=== PATIENT | female | born 1970 | race Caucasian/White ===

== ENCOUNTER 2016-10-24 23:39 | Emergency (ER) | payer OTHER ==
--- NOTE | ~2016-10-24 | CT4 ---
[facility] A Service of [facility] & [facility] / [facility] RADIOLOGY TEXT RESULTS PATIENT: DAVID CHRISTENSEN LOCATION: SED : 70 UNIT #: [id number] AGE: [address]: Ken Drake MD SEX: F ORDER DR: [id number] [place] [id number] E MR#: [id number] Acc #: [id number] NAME: DAVID CHRISTENSEN : 1970 SEX: F STUDY DATE/TIME: 10/25/2016 00:28 UNIT: SED ROOM: STUDY DESCRIPTION: CT Abd and Pelv Wo Cont Attending Physician: Ken Drake M.D. Ordering Physician: Ken Drake M.D. Primary Care Physician: Primary Care Physician No MEDICAL IMAGING REPORT This report is preliminary unless electronic signature is present. EXAM CT abdomen and pelvis, 10/25 at 0028 hours INDICATIONS Left lower quadrant pain since last night with associated nausea, vomiting and diarrhea. Pain is currently 10/10. TECHNIQUE Axial images were obtained through the abdomen and pelvis without contrast. Multiplanar reformats were obtained. Comparison made with 01/27/2013. This CT exam was performed with one or more of the following radiation dose reduction techniques: Automatic exposure control, adjustment of mA and/or kV according to patient size, and iterative reconstruction. FINDINGS ABDOMEN: The lung bases are clear. Gallbladder is unremarkable. There are bilateral nonobstructing renal stones. The largest is in the left kidney measuring about 10 mm in greatest dimension. This is not significantly changed. No ureteral stones are seen on either side and there is no hydronephrosis. The unenhanced solid organs are otherwise normal. No free fluid is seen. The small bowel is normal. There are a few scattered colonic diverticula. There is mild degree of generalized colonic wall thickening suggesting mild colitis. PELVIS: There are no lower ureteral stones. The bladder is normal. The solid pelvic organs are normal. There is sigmoid diverticulosis, without evidence of focal diverticulitis. The appendix is normal. There is some mild degenerative disease in the lumbar spine, particularly involving the right L5-S1 facet. IMPRESSION [facility] A Service of [facility] & [facility] / [facility] RADIOLOGY TEXT RESULTS PATIENT: DAVID CHRISTENSEN LOCATION: [facility] : [birth year] UNIT #: [id number] AGE: [address]: Ken Drake MD SEX: F ORDER DR: 1. Bilateral nonobstructing renal stones. No ureteral stones are seen and there is no hydronephrosis. 2. Mild wall thickening in the colon suggesting a very mild degree of generalized colitis. No adjacent inflammatory fat stranding. Scattered colonic diverticula are present, but there is no focal diverticulitis identified. 3. Normal small bowel and appendix. Dictated by... Cas Barfield Jr., M.D. THIS IS AN ELECTRONICALLY VERIFIED REPORT Cas Barfield Jr., M.D. at 10/25/2016 9:31 PM JOJO/moni TD: 10/25/2016 15:58 JOB #: [id number] MEDICAL IMAGING REPORT
[~2016-10-24 23:39] MED LIST: BENTYL10 MG PO; CIPRO PO; CLARITHROMYCIN500 MG PO; FLAGYL PO; FLEXERIL PO; FLEXERIL10 M1 PO; K-DUR20 ME1 PO; LEVAQUIN750 MG PO; MOBIC PO; NO MEDICATIONS; PHENERGAN PO; PHENERGAN25 M1 PO; PHENERGAN25 MG PO; PRILOSEC20 M1 PO; VOLTAREN PO; ZOFRAN ODT4 MG PO
[2016-10-24 23:42] LABS: BASOPHIL# 0.1 X10e3 (0-0.3); BASOPHIL% 0.6 % (0-2.5); DIFF IND NO; EOSINOPHIL# 0.1 X10e3 (0-0.7); EOSINOPHIL% 0.4 % (0.0-7.0); HEMATOCRIT 46.5 % (35.0-45.0); HEMOGLOBIN 15.4 gm/dL (12.0-16.0); LYMPHOCYTE# 2.2 X10e3 (1.0-3.5); LYMPHOCYTE% 14.8 % (17.0-45.0); MEAN CELL VOLUME 91.7 FL (83-96); MEAN CORPUSCULAR HEMOGLOBIN 30.4 PG (28-34); MEAN CORPUSCULAR HGB CONC 33.2 g/dL (30-36); MEAN PLATELET VOLUME 7.6 FL (6.5-11.5); MONOCYTE# 1.1 X10e3 (0-1.0); MONOCYTE% 7.4 % (3.0-12.0); NEUTROPHIL# 11.3 X10e3 (1.5-7.1); NEUTROPHIL% 76.8 % (40-75); PLATELET COUNT 348 X10e3 (140-420); RED BLOOD COUNT 5.07 X10e (3.90-5.30); RED CELL DISTRIBUTION WIDTH 14.1 % (11.0-15.5); WHITE BLOOD COUNT 14.7 X10e3 (4.0-10.5)
[2016-10-25] LABS: ALBUMIN SERUM 4.8 g/dL (3.5-5.0); ALKALINE PHOSPHATASE 100 U/L (32-92); ALT (SGPT) 28 U/L (10-40); AMYLASE 24 U/L (0-46); AST (SGOT) 28 U/L (10-42); BILIRUBIN,TOTAL 0.4 mg/dL (0.2-2.0); BLOOD UREA NITROGEN 12 mg/dL (9-23); CALCIUM SERUM 9.3 mg/dL (8.4-10.2); CARBON DIOXIDE 27 mmol/L (22-31); CHLORIDE 101 mmol/L (100-111); CREATININE SERUM 0.6 mg/dL (0.6-1.4); GLOM FILT RATE Estimated ABOVE60 mL/min (>60); GLUCOSE FASTING 148 mg/dL (70-110); LIPASE 29 U/L (22-51); POTASSIUM 3.2 mmol/L (3.5-5.1); SODIUM 138 mmol/L (135-145)
[2016-10-25 00:48] LABS: URINE SOURCE CLEAN CATCH
[2016-10-25 00:50] LABS: URINE APPEARANCE SL CLOUDY; URINE BLOOD 3+ (NEG); URINE COLOR YELLOW; URINE GLUCOSE NEG (NORM); URINE KETONE TRACE (NEG); URINE LEUKOCYTE ESTERASE NEG (NEG); URINE NITRATE NEG (NEG); URINE PH 5.5 (5-8); URINE PROTEIN 1+ (NEG); URINE SPECIFIC GRAVITY >=1.030 (1.003-1.035); URINE UROBILINOGEN 0.2 MG/DL (NORM)
[2016-10-25 00:56] LABS: MICRO INDICATED? YES; URINE BILIRUBIN NEG (NEG)
[2016-10-25 00:57] LABS: CULTURE INDICATED? NO; URINE AMORPHOUS SEDIMENT AMORP URATES; URINE BACTERIA NEG (NEG); URINE CRYSTALS CALCIUM OXALATE /[HPF]; URINE MUCUS PRESENT; URINE SQUAMOUS EPITHELIAL CELL OCCAS /[HPF]
[2016-10-25] MEDS ORDERED: K-DUR20 ME1 DOB (01:36)
[2016-10-25] MEDS ORDERED: FLAGYL PO (01:37)
[2016-10-25] MEDS ORDERED: ZOFRAN ODT4 MG PO (01:38)
[2016-10-25] MEDS ORDERED: BACTRIM DS TABL1 TA2 PO (01:38)
[2016-10-25] MEDS ORDERED: HYDROCODONE/APA1 T16 PO (01:40)
== END 2016-10-25 02:00 | disposition home or self-care (01) ==
LOC: SED 23:39
PROVIDERS: Emergency Medicine
DX: K57.32 Diverticulitis of large intestine without perforation or abscess without bleeding (principal); F17.210 Nicotine dependence, cigarettes, uncomplicated
CPT/HCPCS: 36415; 74176; 80053; 81003; 82150; 83690; 84703; 85025; 96374; 96375; 96376; 99284; J1170; J2405; J2765

== ENCOUNTER 2016-12-15 08:51 | Emergency (ER) | payer OTHER ==
--- NOTE | ~2016-12-15 | CR2 ---
[facility] A Service of [facility] & [facility] RADIOLOGY TEXT RESULTS PATIENT: DAVID CHRISTENSEN LOCATION: [facility] : [birth year] UNIT #: [id number] AGE: [address]: Shalini Salmeron APRN SEX: F ORDER DR: [id number] [facility] [address] [place], [place] [address] [id number] E MR#: [id number] Acc #: [id number] NAME: DAVID CHRISTENSEN : 1970 SEX: F STUDY DATE/TIME: 12/15/2016 9:20 UNIT: [facility] ROOM: STUDY DESCRIPTION: CR Abdomen Acute Series Attending Physician: Shalini Salmeron A.P.R.N. Ordering Physician: Ed Doctor [id number] [facility] Primary Care Physician: Primary Care Physician No MEDICAL IMAGING REPORT This report is preliminary unless electronic signature is present EXAM Acute abdominal series INDICATION Abdominal pain and constipation for 2 weeks. COMPARISON 09/28/2013 FINDINGS There is a stable large stone in the upper pole of the left kidney. Nonobstructed bowel gas pattern. IMPRESSION Nonobstructed bowel gas pattern. Stable large stone upper pole left kidney. Dictated by... Raul Adkins M.D. THIS IS AN ELECTRONICALLY VERIFIED REPORT Raul Adkins M.D. at 12/15/2016 5:09 PM Gui TD: 12/15/2016 10:09 JOB #: [id number] MEDICAL IMAGING REPORT Page 1 of 1 COPY
[~2016-12-15 08:51] MED LIST changes: +BACTRIM DS TABL1 TA2 PO; +HYDROCODONE/APA1 T16 PO; +K-DUR20 ME1 DOB
[2016-12-15 09:34] LABS: BASOPHIL% 0.5 % (0-2.5); EOSINOPHIL# 0.1 X10e3 (0-0.7); EOSINOPHIL% 0.9 % (0.0-7.0); HEMATOCRIT 43.8 % (35.0-45.0); HEMOGLOBIN 14.6 gm/dL (12.0-16.0); LYMPHOCYTE# 1.8 X10e3 (1.0-3.5); LYMPHOCYTE% 18.5 % (17.0-45.0); MEAN CELL VOLUME 92.1 FL (83-96); MEAN CORPUSCULAR HEMOGLOBIN 30.7 PG (28-34); MEAN CORPUSCULAR HGB CONC 33.3 g/dL (30-36); MEAN PLATELET VOLUME 7.7 FL (6.5-11.5); MONOCYTE# 0.8 X10e3 (0-1.0); MONOCYTE% 8.2 % (3.0-12.0); NEUTROPHIL# 7.1 X10e3 (1.5-7.1); NEUTROPHIL% 71.9 % (40-75); PLATELET COUNT 325 X10e3 (140-420); RED BLOOD COUNT 4.75 X10e (3.90-5.30); RED CELL DISTRIBUTION WIDTH 14.5 % (11.0-15.5); WHITE BLOOD COUNT 9.9 X10e3 (4.0-10.5)
[2016-12-15 09:53] LABS: DIFF IND NO
[2016-12-15 09:59] LABS: ALBUMIN SERUM 4.5 g/dL (3.5-5.0); ALKALINE PHOSPHATASE 86 U/L (32-92); ALT (SGPT) 18 U/L (10-40); AMYLASE 16 U/L (0-46); AST (SGOT) 24 U/L (10-42); BILIRUBIN,TOTAL 0.5 mg/dL (0.2-2.0); BLOOD UREA NITROGEN 8 mg/dL (9-23); CALCIUM SERUM 9.6 mg/dL (8.4-10.2); CARBON DIOXIDE 25 mmol/L (22-31); CHLORIDE 105 mmol/L (100-111); CREATININE SERUM 0.5 mg/dL (0.6-1.4); GLOM FILT RATE Estimated 116.1 mL/min (>60); GLUCOSE FASTING 90 mg/dL (70-110); LIPASE 18 U/L (22-51); POTASSIUM 3.7 mmol/L (3.5-5.1); PROTEIN TOTAL SERUM 7.7 g/dL (6.0-8.3); SODIUM 140 mmol/L (135-145)
[2016-12-15 10:00] LABS: BILIRUBIN, DIRECT <0.1 mg/dL (0.0-0.2); BILIRUBIN,INDIRECT 0.4 mg/dL (0.0-0.9)
[2016-12-15 10:49] LABS: URINE SOURCE CLEAN CATCH
[2016-12-15 10:56] LABS: URINE APPEARANCE CLOUDY; URINE BILIRUBIN NEG (NEG); URINE BLOOD 2+ (NEG); URINE COLOR YELLOW; URINE GLUCOSE NEG (NEG); URINE KETONE NEG (NEG); URINE LEUKOCYTE ESTERASE NEG (NEG); URINE NITRATE NEG (NEG); URINE PH 7.5 (5-8); URINE PROTEIN NEG (NEG); URINE SPECIFIC GRAVITY 1.011 (1.003-1.035); URINE UROBILINOGEN 0.2 MG/DL (NEG)
[2016-12-15 10:58] LABS: U HYALINE CASTS AUWI 0-2 /[LPF]; URINE BACTERIA AUWI NEG (NEGATIVE); URINE SQUAMOUS EPITHELIAL CELL NONE SEEN /[HPF]; UWBCS1 AUWI 0-2 (0-5)
[2016-12-15 11:09] LABS: CULTURE INDICATED? NO
== END 2016-12-15 13:00 | disposition home or self-care (01) ==
LOC: CED 08:51
PROVIDERS: Nurse Practitioner
DX: K62.3 Rectal prolapse (principal); F17.210 Nicotine dependence, cigarettes, uncomplicated
CPT/HCPCS: 36415; 74022; 80048; 80076; 81003; 82150; 83690; 84703; 85025; 96372; 99284; J1885; J2270